=== PATIENT | female | born 1990 | race Caucasian/White ===

== ENCOUNTER 2021-02-19 18:04 | Emergency (ER) | payer MEDICAID ==
[2021-02-19 18:44] LABS: BASO # 0.03 (0.02-0.10); EOS # 0.06 (0.04-0.40); HEMATOCRIT 39.7 % (37.0-47.0); HEMOGLOBIN 12.8 g/dL (12.5-16.0); LYMPH# 2.59 (1.50-4.00); MEAN CELL VOLUME 95 fl (78-100); MEAN CORPUSCULAR HEMOGLOBIN 31 pg (27-31); MEAN CORPUSCULAR HGB CONC 32 g/dL (33-37); MEAN PLATELET VOLUME 9.1 fl (7.4-10.4); MONO # 0.25 (0.20-0.80); NEU # 2.97 (1.40-6.50); PLATELET COUNT 299 K/mm3 (130-400); RED BLOOD COUNT 4.19 M/mm3 (4.10-5.30); RED CELL DISTRIBUTION WIDTH 12.3 % (11.5-14.5); WHITE BLOOD COUNT 5.9 K/mm3 (4.8-10.8)
[2021-02-19 18:54] LABS: ALBUMIN 3.5 g/dL (3.5-5.0); POTASSIUM 3.1 mmol/L (3.5-5.1); SODIUM 145 mmol/L (136-145)
[2021-02-19 18:55] LABS: CALCIUM 9.1 mg/dL (8.3-10.5)
[2021-02-19 18:57] LABS: GLUCOSE 99 mg/dL (65-105); TOTAL PROTEIN 5.7 g/dL (6.4-8.3)
[2021-02-19 18:58] LABS: CARBON DIOXIDE 21 mmol/L (22-29); TOTAL BILIRUBIN 0.3 mg/dL (0.2-1.2)
[2021-02-19 19:00] LABS: ALCOHOL IN-HOUSE 170 mg/dL (<10)
[2021-02-19 19:02] LABS: AST-SGOT 17 U/L (5-34)
[2021-02-19 19:04] LABS: ALT/SGPT 22 U/L (0-55)
[2021-02-19 19:07] LABS: ACETAMINOPHEN < 1 ug/mL
[2021-02-19 21:38] LABS: URINE APPEARANCE CLEAR; URINE BILIRUBIN NEGATIVE (NEGATIVE); URINE BLOOD 250 ery/uL (NEGATIVE); URINE COLOR YELLOW; URINE GLUCOSE NEGATIVE (NEGATIVE); URINE KETONE NEGATIVE (NEGATIVE); URINE LEUKOCYTE ESTERASE 1+ (NEGATIVE); URINE NITRATE NEGATIVE (NEGATIVE); URINE PROTEIN(semi-quant) NEGATIVE (NEGATIVE); URINE UROBILINOGEN NORMAL (NORMAL)
[2021-02-19 21:39] LABS: URINE MUCUS PRESENT (NOT PRESENT)
[2021-02-19 23:13] LABS: ALCOHOL IN-HOUSE 89 mg/dL (<10)
[2021-02-19 23:16] LABS: ACETAMINOPHEN < 1 ug/mL
[2021-02-20 01:58] VITALS: BP 102/65
== END 2021-02-20 01:58 | disposition home or self-care (01) ==
LOC: ED 18:04 → EDBD 18:04 → ED 19:01
PROVIDERS: Family Medicine
DX: O9A.23 Injury, poisoning and certain other consequences of external causes complicating the puerperium (principal); T42.4X2A Poisoning by benzodiazepines, intentional self-harm, initial encounter; T39.1X2A Poisoning by 4-Aminophenol derivatives, intentional self-harm, initial encounter; F10.10 Alcohol abuse, uncomplicated; O99.345 Other mental disorders complicating the puerperium; F53.0 Postpartum depression; F55.8 Abuse of other non-psychoactive substances
CPT/HCPCS: J2310; J7030

== ENCOUNTER 2021-11-01 02:48 | Emergency (ER) | payer MEDICAID ==
[~2021-11-01] VITALS: Ht 167.6 cm; Wt 81.8 kg
[2021-11-01] MEDS ORDERED: MUCINEX 60600 MG/TA1 PO (03:11)
[2021-11-01] MEDS ORDERED: BENADRYL25 M2 PO (03:12)
[2021-11-01] MEDS ORDERED: ZYRTEC ALLERGY10 MG PO (03:14)
[2021-11-01] MEDS ORDERED: AMOXICILLIN AND1 TA2 PO (03:43)
[2021-11-01 03:57] VITALS: BP 120/78
== END 2021-11-01 03:57 | disposition home or self-care (01) ==
LOC: ED 02:48
DX: H66.92 Otitis media, unspecified, left ear (principal)

== ENCOUNTER 2021-12-27 21:59 | Emergency (ER) | payer MEDICAID ==
[~2021-12-27] VITALS: Ht 162.6 cm; Wt 79.5 kg
[~2021-12-27 21:59] MED LIST: AMOXICILLIN AND1 TA2 PO; BENADRYL25 M2 PO; MUCINEX 60600 MG/TA1 PO; ZYRTEC ALLERGY10 MG PO
[2021-12-27 22:45] LABS: BASO # 0.03 K/mm3 (0.02-0.10); EOS # 0.04 K/mm3 (0.04-0.40); EOS % 0.6 % (1.0-5.0); HEMATOCRIT 42.4 % (37.0-47.0); HEMOGLOBIN 14.6 g/dL (12.5-16.0); LYMPH# 2.24 K/mm3 (1.50-4.00); MEAN CELL VOLUME 91 fl (78-100); MEAN CORPUSCULAR HEMOGLOBIN 31 pg (27-31); MEAN CORPUSCULAR HGB CONC 34 g/dL (33-37); MEAN PLATELET VOLUME 8.7 fl (7.4-10.4); MONO # 0.38 K/mm3 (0.20-0.80); NEU # 3.83 K/mm3 (1.40-6.50); PLATELET COUNT 283 K/mm3 (130-400); RED BLOOD COUNT 4.67 M/mm3 (4.10-5.30); RED CELL DISTRIBUTION WIDTH 11.5 % (11.5-14.5); WHITE BLOOD COUNT 6.5 K/mm3 (4.8-10.8)
[2021-12-27 22:54] LABS: ALBUMIN 4.3 g/dL (3.5-5.0); POTASSIUM 3.7 mmol/L (3.5-5.1)
[2021-12-27 22:55] LABS: CALCIUM 9.3 mg/dL (8.3-10.5)
[2021-12-27 22:58] LABS: TOTAL BILIRUBIN 0.6 mg/dL (0.2-1.2); TOTAL PROTEIN 6.9 g/dL (6.4-8.3)
[2021-12-27 23:26] LABS: URINE APPEARANCE CLOUDY; URINE BILIRUBIN NEGATIVE (NEGATIVE); URINE COLOR YELLOW; URINE GLUCOSE NEGATIVE (NEGATIVE); URINE KETONE NEGATIVE (NEGATIVE); URINE NITRATE NEGATIVE (NEGATIVE); URINE PROTEIN(semi-quant) TRACE (NEGATIVE); URINE UROBILINOGEN NORMAL (NORMAL)
[2021-12-27 23:27] LABS: URINE BLOOD 250 ery/uL (NEGATIVE); URINE LEUKOCYTE ESTERASE 2+ (NEGATIVE); URINE MUCUS PRESENT (NOT PRESENT)
[2021-12-28 01:20] VITALS: BP 90/60
== END 2021-12-28 01:20 | disposition home or self-care (01) ==
LOC: ED 21:59
PROVIDERS: Nurse Practitioner
DX: M54.2 Cervicalgia (principal); R51.9 Headache, unspecified; F17.210 Nicotine dependence, cigarettes, uncomplicated; Z28.310 Unvaccinated for COVID-19
CPT/HCPCS: L0172; Q9967

== ENCOUNTER 2022-03-04 00:45 | Emergency (ER) | payer MEDICAID ==
[2022-03-04 01:46] VITALS: BP 106/63
== END 2022-03-04 01:55 | disposition home or self-care (01) ==
LOC: ED 00:45
DX: M54.2 Cervicalgia (principal); R05.3 Chronic cough; R07.89 Other chest pain; Z28.310 Unvaccinated for COVID-19
CPT/HCPCS: J3301